=== PATIENT | male | born 2000 | race Caucasian/White ===

== ENCOUNTER 2022-09-27 05:43 | Emergency (ER) | payer OTHER ==
[2022-09-27 06:34] LABS: Hemoglobin 14.7 g/dL (13.5-17.5); MDiff Complete? YES; Mean Corpuscular HGB CONC 35.9 g/dL (32.0-36.0); Mean Corpuscular Hemoglobin 29.6 pg (27.0-33.0); Mean Corpuscular Volume 82.7 fl (81.2-95.1); Mean Platelet Volume 9.2 fl (7.4-10.4); Platelet Count 373 10x3/uL (150-450); RBC Distribution Width 11.7 % (11.5-14.5); Red Blood Cell (RBC) Count 4.96 10x6/uL (4.32-5.72); White Blood Cell (WBC) Count 4.2 10x3/uL (3.5-10.5)
[2022-09-27 06:44] LABS: ALT (SGPT) 16 U/L (8-55); AST (SGOT) 15 U/L (5-34); Alkaline Phosphatase 81 U/L (40-110); Anion Gap 22 mmol/L (10-20); BUN (Urea Nitrogen) 7 mg/dL (8.9-20.6); Bilirubin, Total 0.7 mg/dL (0.2-1.2); Calc. Creatinine Clearance 0 mL/min (70-130); Calcium 10.1 mg/dL (7.8-10.44); Carbon Dioxide 18 mmol/L (22-29); Chloride 104 mmol/L (98-107); Estimated GFR 118; Globulin 2.7 g/dL (2.4-3.5); Glucose 115 mg/dL (70-105); Protein, Total 7.7 g/dL (6.0-8.3); Sodium 141 mmol/L (136-145)
[2022-09-27] MEDS ORDERED: Potassium Chloride 20 MEQ TAB ONE ×2 (07:18→07:26)
[2022-09-27 07:30] LABS: Band 2 % (5-11); Eosinophils 9 % (0-10); Lymphocytes 30 % (21-51); Monocytes 17 % (0-10); Neutrophil 42 % (42-75)
[2022-09-27 07:31] LABS: Platelet Morphology Comment Appears Adequate
[2022-09-27 07:32] LABS: RBC Morphology Normal
== END 2022-09-27 07:00 | disposition home or self-care (01) ==
LOC: CSHERS 05:43
DX: K52.9 Noninfective gastroenteritis and colitis, unspecified (principal)
CPT/HCPCS: 80053; 85025; 99284